=== PATIENT | female | born 1990 | race Caucasian/White ===

== ENCOUNTER 2020-01-17 23:57 | Emergency (ER) | payer OTHER ==
[~2020-01-17] VITALS: Ht 170.2 cm; Wt 90.9 kg
[2020-01-18] MEDS ORDERED: NORCO 325 MG-51 TA1 PO (00:08)
[2020-01-18 00:58] LABS: EOS # 0.3 (0.04-0.40); EOS % 2.4 % (1.0-5.0); HEMATOCRIT 43.5 % (37.0-47.0); HEMOGLOBIN 14.6 g/dL (12.5-16.0); LYMPH# 3.2 (1.50-4.00); MEAN CELL VOLUME 86 fl (78-100); MEAN CORPUSCULAR HEMOGLOBIN 29 pg (27-31); MEAN CORPUSCULAR HGB CONC 34 g/dL (33-37); MONO # 1.2 (0.20-0.80); PLATELET COUNT 307 K/mm3 (130-400); RED BLOOD COUNT 5.04 M/mm3 (4.10-5.30); RED CELL DISTRIBUTION WIDTH 12.7 % (11.5-14.5); WHITE BLOOD COUNT 14.1 K/mm3 (4.8-10.8)
[2020-01-18 01:24] LABS: D-DIMER 0.49 mg/L FEU (0.15-0.50); NEU # 9.3 (1.40-6.50)
[2020-01-18 02:00] VITALS: BP 118/66
== END 2020-01-18 02:00 | disposition home or self-care (01) ==
LOC: ED 23:57
PROVIDERS: Family Medicine
DX: M79.661 Pain in right lower leg (principal); G89.18 Other acute postprocedural pain; F17.210 Nicotine dependence, cigarettes, uncomplicated; Z48.89 Encounter for other specified surgical aftercare